=== PATIENT | female | born 1955 | race American Indian/Alaskan Native ===

== ENCOUNTER 2016-10-22 07:35 | Outpatient (CLI) | payer OTHER, MEDICARE ==
[2016-10-22] MEDS ORDERED: LEXISCAN IV ONE ×2 (08:46→08:55)
--- NOTE | 2016-10-22 14:13 | Treadmill Report ---
ORDERING PHYSICIAN: Dipak Bateman MD FINDINGS: There is no scintigraphic evidence of myocardial ischemia. The left ventricle is normal in size and systolic function. The left ventricular ejection fraction is measured at 67%. Normal wall motion and wall thickening is noted on gated imaging. CONCLUSION: 1. This is a normal perfusion scan. 2. Normal left ventricular size and systolic function. JOB# [id number] JEOVANY/TIFFANY
[2016-10-22 14:27] VITALS: BP 127/96
== END 2016-10-22 07:36 | disposition home or self-care (01) ==
LOC: CARD 07:35
PROVIDERS: ATTEND Internal Medicine
DX: I27.9 Pulmonary heart disease, unspecified (principal); R07.9 Chest pain, unspecified
CPT/HCPCS: 78452; 93017; A9502; J2785

== ENCOUNTER 2017-05-04 09:24 | Outpatient (CLI) | payer OTHER, MEDICARE ==
--- NOTE | 2017-05-04 10:18 | Mammography Report ---
Bilateral mammogram: Compared to 04/15/16. CAD study utilized. Findings: Heterogeneous breast parenchyma bilaterally. Benign density right breast. No mass. Normal axilla. Impression: Benign findings. Annual followup recommended. BI-RADS CATEGORY: 2 = Benign ACR BI-RADS MAMMOGRAPHIC CODES: 0 = Needs additional imaging evaluation; 1 = Negative; 2 = Benign; 3 = Probably benign; 4 = Suspicious; 5 = Malignant; 6 = Known biopsy-proven malignancy COMMENT: 1. Dense breast tissue, i.e., adenosis, fibrocystic changes, etc., may obscure an underlying neoplasm. 2. Approximately 10% of cancers are not detected with mammography. 3. A negative mammography report should not delay biopsy if a clinically suspicious mass is present. COMMENT: Patient follow-up letters are generated in [facility].
== END 2017-05-04 09:25 | disposition home or self-care (01) ==
LOC: SPVWC 09:24
PROVIDERS: ATTEND Internal Medicine Gastroenterology
DX: Z12.31 Encounter for screening mammogram for malignant neoplasm of breast (principal)
CPT/HCPCS: 77067; G0202

== ENCOUNTER 2017-11-24 16:07 | Emergency (ER) | payer OTHER, MEDICARE ==
[2017-11-24] MEDS ORDERED: ROBAXIN PO ONE (17:42)
[2017-11-24] MEDS ORDERED: MOTRIN PO ONE (17:42)
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
[2017-11-24 20:41] VITALS: BP 119/71
== END 2017-11-24 20:40 | disposition home or self-care (01) ==
LOC: ED 16:07
DX: M54.5 Low back pain (principal); M54.2 Cervicalgia; G89.29 Other chronic pain; M62.838 Other muscle spasm; Z87.891 Personal history of nicotine dependence; V89.2XXA Person injured in unspecified motor-vehicle accident, traffic, initial encounter; Y93.89 Activity, other specified; Y92.89 Other specified places as the place of occurrence of the external cause; Y99.8 Other external cause status
CPT/HCPCS: 72040; 72100; 99283

== ENCOUNTER 2018-05-16 13:07 | Emergency (ER) | payer OTHER, MEDICARE ==
[2018-05-16 13:18] VITALS: BP 133/101
[2018-05-16] MEDS ORDERED: TORADOL IM ONE (20:03)
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
== END 2018-05-16 21:40 | disposition home or self-care (01) ==
LOC: ED 13:07
DX: G89.29 Other chronic pain (principal); M54.5 Low back pain; F17.200 Nicotine dependence, unspecified, uncomplicated; V89.2XXA Person injured in unspecified motor-vehicle accident, traffic, initial encounter; Y92.410 Unspecified street and highway as the place of occurrence of the external cause; Y99.8 Other external cause status
CPT/HCPCS: 72100; 96372; 99283; J1885

== ENCOUNTER 2019-08-27 08:04 | Outpatient (CLI) | payer OTHER, MEDICARE ==
--- NOTE | 2019-08-27 16:23 | Mammography Report ---
DIGITAL SCREENING MAMMOGRAM WITH CAD, 08/27/2019 INDICATION: Routine screening mammography. TECHNIQUE: Digital bilateral 2D mammography was obtained in the craniocaudal and mediolateral obliq ue projections. This examination was interpreted with the benefit of Computer-Aided Detection analysi s. COMPARISON: 08/24/2018 FINDINGS: Breast Density: The breasts are heterogeneously dense, which may obscure small masses. There is no evidence of dominant mass, suspicious calcifications or architectural distortion in eithe r breast. IMPRESSION: No mammographic evidence of malignancy. Follow up recommendation: Routine yearly BI-RADS Category 1: Negative. A "normal" or negative report should not discourage follow up or biopsy of a clinically significant f inding. A written summary of these findings will be mailed to the patient. The patient will be entered into a mammography reporting system which will generate a reminder letter for the patient's next appointmen t at the appropriate interval. The [employer] recommends yearly mammograms starting at age 40 and continuing as l sathish as a woman is in good health. Breast MRI is recommended for women with an approximate 20-25% or greater lifetime risk of breast cancer, including women with a strong family history of breast or ova raghu cancer or who have been treated for Hodgkin's disease. Signer Name: Remy Holldiay MD Signed: 08/27/2019 4:19 PM Workstation Name: [id number]
== END 2019-08-27 08:05 | disposition home or self-care (01) ==
LOC: SPVWC 08:04
PROVIDERS: ATTEND Hospitalist
DX: Z12.31 Encounter for screening mammogram for malignant neoplasm of breast (principal)
CPT/HCPCS: 77067

== ENCOUNTER 2021-07-10 17:52 | Inpatient (IN) | payer OTHER, MEDICARE ==
[2021-07-10] MEDS ORDERED: HEPARIN 10,000 UNITS/10 ML VIAL ONE (17:56)
[2021-07-10] MEDS ORDERED: CLOPIDOGREL 300 MG TAB ONE (17:56)
[2021-07-10] MEDS ORDERED: VERAPAMIL 5 MG/2 ML INJ ONE (17:58)
[2021-07-10] MEDS ORDERED: HEPARIN/NS 5000 UNIT/500ML 1,000 ML IR ONE (17:58)
[2021-07-10] MEDS ORDERED: fentaNYL 100 MCG/2 ML INJ ONE (17:58)
[2021-07-10] MEDS ORDERED: LIDOCAINE (2%) 20 MG/1 ML VIAL 20 ML MDV INFILTRATI ONE (17:59)
[2021-07-10] MEDS ORDERED: NITROGLYCERIN SYRINGE 3 ML ONE (17:59)
[2021-07-10] MEDS ORDERED: SODIUM CHLORIDE 0.9% 1000 ML 1,000 ML ONE (18:00)
[2021-07-10] MEDS ORDERED: CLOPIDOGREL 300 MG TAB PO ONE (18:02)
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
--- NOTE | 2021-07-10 18:08 | History and Physical Report ---
History of Present Illness Chief complaint: My chest hurts History of present illness: 65 YO Female with HTN, HLD, LDD, COPD, OA, Nicotine Dependence presets to ED for evaluation. Pt reports "my chest hurts". Pt states that she has experienced a sudden onset of pain in her chest that began approximately 2 hours ago. Patient states that pain is 10/10, constant, substernal, localized to the left chest, radiates to her jaw and shoulder, worsened with exertion, relieved with rest. EMS was notified and upon arrival the patient was found to be in distress. Patient underwent EKG which was transmitted to [facility] ED. Patient was found to have ST elevation in inferior leads. A code STEMI was called and the patient was subsequently transported to [facility] for further care and evaluation of the aforementioned symptoms. The patient was seen and evaluated in the emergency department and found to have ST elevation [place] and was immediately transported to cardiac Chief Business Officer for intervention. Cardiology team was notified prior to arrival. Patient admitted to ICU and initiated on ACS protocol. Patient denies fever, chills, palpitation, productive cough, skin rash, recent contact, or known exposure to COVID-19. No prior admission for review. No medication listed at time of admission reconciliation. Advanced care planning conducted in ED. Past History Past Medical History: COPD, hypertension, hyperlipidemia, other (See HPI) Past Surgical History: No surgical history, Other (Reviewed) Social history: , lives with family, smoking Family history: hypertension Medications and Allergies Allergies Allergy/AdvReac Type Severity Reaction Status Date / Time No Known Allergies Allergy Verified 10/22/16 08:54 Home Medications Medication Instructions Recorded Confirmed Last Taken Type Gabapentin 100 mg PO HS 10/12/18 10/12/18 08/12/18 History 100 MG HYDROcodone/APAP 7.5-325 [[place] 1 tab PO DAILY PRN 10/12/18 10/12/18 07/21/18 History 7.5-325 mg TAB] 1 TAB Pantoprazole [Protonix] 40 mg PO QDAY 10/12/18 10/12/18 08/13/18 History 40 MG Active Meds: Active Medications Heparin Sodium (Porcine) (Heparin 1,000 Unit/1 Ml Vial) 4,000 unit IV ONCE ONE Stop: 07/10/21 18:03 Review of Systems Constitutional: no weight loss, no weight gain, no fever, no chills Ears, nose, mouth and throat: no ear pain, no tinnitis, no nose pain, no nasal congestion, no sinus pressure Breasts: no change in shape, no swelling Cardiovascular: chest pain, dyspnea on exertion, decreased exercise tolerance Respiratory: no cough, no excessive sputum, no hemoptysis Gastrointestinal: no abdominal pain, no nausea, no vomiting, no diarrhea, no constipation, no change in bowel habits Genitourinary Female: no pelvic pain, no flank pain, no dysuria, no urinary frequency, no urgency Rectal: no pain, no incontinence, no bleeding Musculoskeletal: no neck stiffness, no neck pain, no shooting arm pain, no arm numbness/tingling Integumentary: no rash, no redness, no sores, no jaundice, no boils Neurological: no transient paralysis, no parathesias, no tingling, no seizures, no syncope Psychiatric: no memory loss, no sleep disturbances, no hypersomnia, no suicidal ideation Endocrine: no cold intolerance, no excessive thirst, no polydipsia, no polyuria, no nocturia Hematologic/Lymphatic: no easy bruising, no easy bleeding, no lymphadenopathy, no lymphedema Allergic/Immunologic: no allergic rhinitis, no wheezing, no anaphylaxis Exam - Constitutional General appearance: Present: mild distress - EENT Eyes: Present: PERRL ENT: hearing intact, clear oral mucosa - Neck Neck: Present: supple, normal ROM - Respiratory Respiratory effort: normal Respiratory: bilateral: CTA - Cardiovascular Heart Sounds: Present: S1 & S2. Absent: rub, click - Extremities Extremities: pulses symmetrical, No edema Peripheral Pulses: within normal limits - Abdominal General gastrointestinal: Present: soft, non-tender, non-distended, normal bowel sounds Female genitourinary: Present: normal - Integumentary Integumentary: Present: clear, warm, dry - Musculoskeletal Musculoskeletal: gait normal, strength equal bilaterally - Psychiatric Psychiatric: appropriate mood/affect, intact judgment & insight - Neurologic Neurologic: CNII-XII intact, moves all extremities Results - Labs CBC & Chem 7: 07/10/21 Unknown 07/10/21 Unknown Assessment and Plan - Patient Problems (1) STEMI (ST elevation myocardial infarction) Current Visit: No Status: Acute Qualifiers: Involved coronary artery: right coronary artery Qualified Code(s): I21.11 - ST elevation (STEMI) myocardial infarction involving right coronary artery Plan to address problem: Cardiology team consulted in ED. Patient initiated on ACS protocol. Serial cardiac enzymes, EKG, telemetry,. Patient taken urgently to Chief Business Officer for c ardiac intervention. Further care and evaluation as per cardiology team. The high probability of a clinically significant, sudden or life threatening deterioration of the [cardiac] system(s) required my full and direct attention, intervention and personal management. The aggregate critical care time was [65] minutes. This time is in addition to time spent performing reported procedures but includes the following: [x] Data Review and interpretation [x] Patient assessment and monitoring of vital signs [x] Documentation [x] Medication orders and management (2) Diastolic CHF Current Visit: No Status: Suspected Qualifiers: Heart failure chronicity: acute Qualified Code(s): I50.31 - Acute diastolic (congestive) heart failure Plan to address problem: Echocardiogram ordered and is pending at time of admission, cardiology team con sulted in ED. (3) HTN (hypertension) Current Visit: No Status: Acute Qualifiers: Hypertension type: primary hypertension Qualified Code(s): I10 - Essential (primary) hypertension Plan to address problem: Monitor blood pressure every shift, continue medical management (4) HLD (hyperlipidemia) Current Visit: No Status: Acute Qualifiers: Hyperlipidemia type: mixed hyperlipidemia Qualified Code(s): E78.2 - Mixed hyperlipidemia Plan to address problem: Lipid panel, low-cholesterol diet, statin therapy. (5) Nicotine dependence Current Visit: No Status: Acute Qualifiers: Nicotine product type: cigarettes Substance use status: in withdrawal Qualified Code(s): F17.213 - Nicotine dependence, cigarettes, with withdrawal Plan to address problem: Smoking cessation counseling, supportive care, behavior change counseling, +15 minutes. (6) DVT prophylaxis Current Visit: No Status: Acute Plan to address problem: SCDs bilateral lower extremities while in bed, anticoagulation as per cardiology team. (7) Advance care planning Current Visit: No Status: Acute Plan to address problem: Disease education conducted, care plan discussed, diagnoses discussed, prognosis discussed, patient is full code, patient knowledges understanding and agreed with care plan, +30 minutes.
[2021-07-10] MEDS ORDERED: oxyCODONE /ACETAMINOPHEN 5-325MG TAB PO PRN (18:12)
[2021-07-10] MEDS ORDERED: ACETAMINOPHEN 325 MG TAB PO PRN (18:12)
[2021-07-10] MEDS ORDERED: HYDROmorphone 1 MG/1 ML INJ IV PRN (18:12)
[2021-07-10] MEDS ORDERED: ALBUTEROL 2.5 MG/3 ML NEBU IH PRN (18:12)
[2021-07-10] MEDS ORDERED: HEPARIN 1,000 UNIT/1 ML VIAL IV ONE (18:15)
[2021-07-10 18:20] LABS: Basophils % (Auto) 0.7 % (0.0-1.8); Hematocrit 36.3 % (30.3-42.9); Hemoglobin 11.9 gm/dl (10.1-14.3); Lymphocytes # (Auto) 1.5 K/mm3 (1.2-5.4); Lymphocytes % (Auto) 22.1 % (13.4-35.0); Mean Corpuscular HGB Conc 33 % (30-34); Mean Corpuscular Volume 97 fl (79-97); Monocytes # (Auto) 0.7 K/mm3 (0.0-0.8); Monocytes % (Auto) 9.9 % (0.0-7.3); Platelet Count 259 K/mm3 (140-440); Red Blood Count 3.75 M/mm3 (3.65-5.03); Red Cell Distribution Width 15.6 % (13.2-15.2)
[2021-07-10] MEDS ORDERED: ASPIRIN 81 MG TAB CHEW PO STA (18:21)
[2021-07-10] MEDS ORDERED: ASPIRIN 81 MG TAB CHEW PO ONE (18:23)
[2021-07-10] MEDS: MIDAZOLAM 2 MG/2 ML INJ ONE ×2 (18:24→19:15)
[2021-07-10] MEDS ORDERED: fentaNYL 100 MCG/2 ML INJ IV ONE ×2 (18:24→19:15)
[2021-07-10 18:30] LABS: Creatine Kinase MB 1.3 ng/mL (0.0-4.0)
[2021-07-10] MEDS: HEPARIN 10,000 UNITS/10 ML VIAL ONE ×2 (18:30→19:31)
[2021-07-10 18:31] LABS: Blood Urea Nitrogen 16 mg/dL (7-17); Calcium 9.1 mg/dL (8.4-10.2); Hemolysis Index 2
[2021-07-10 18:34] LABS: INR 0.89 (0.87-1.13)
[2021-07-10 18:37] LABS: BUN/Creatinine Ratio 23
[2021-07-10] MEDS ORDERED: HEPARIN/NS 5000 UNIT/500ML 500 ML IR ONE (18:51)
[2021-07-10] MEDS ORDERED: NITROGLYCERIN DRIP 50 MG/250 ML BOTTLE ONE (18:56)
[2021-07-10] MEDS ORDERED: TIROFIBAN/NS 12,500 MCG/250 ML BAG IV SCH (19:00)
[2021-07-10] MEDS ORDERED: TIROFIBAN/NS 12,500 MCG/250 ML BAG IV ONE (19:01)
[2021-07-10] MEDS ORDERED: ATROPINE 0.1% (1 MG/10 ML) CARDIAC SYRINGE ONE (19:07)
[2021-07-10 19:25] LABS: Partial Thromboplastin Time < 20.0 Sec. (24.2-36.6)
[2021-07-10] MEDS ORDERED: HYDROcodone/ACETAMINOPHEN 5-325 MG TAB PO PRN (19:28)
[2021-07-10] MEDS ORDERED: NITROGLYCERIN DRIP 50 MG/250 ML BOTTLE IV ONE (19:28)
--- NOTE | 2021-07-10 19:39 | Consultation ---
History of Present Illness Consult date: 07/10/21 Requesting physician: WHITNEY MENDIOLA Consult reason: chest pain History of present illness: Patient is a 65-year-old with no prior cardiac history presented to the hospital complaining of chest pain. Apparently she had a bath and was washing up. She noticed sudden onset of substernal chest pain radiating to her jaw and shoulder. Pain was so intense and associated significant shortness of breath. She immediately called ENT and was noted to have ST elevations. Code STEMI was activated in the field. On arrival to the emergency room patient was noted to have hypertensive emergency. Patient was given heparin and loaded with Plavix by the ER doctor. She was then sent to the Manager Molecular. She underwent left heart cath with PCI of the 100% occlusion of the RCA. Postprocedure patient is doing well and has no chest pain. Patient is being admitted to the ICU for post PCI care. Past History Past Medical History: COPD, hypertension Past Surgical History: No surgical history Social history: smoking Family history: no significant family history Medications and Allergies Allergies Allergy/AdvReac Type Severity Reaction Status Date / Time No Known Allergies Allergy Verified 10/22/16 08:54 Home Medications Medication Instructions Recorded Confirmed Last Taken Type Gabapentin 100 mg PO HS 10/12/18 10/12/18 08/12/18 History 100 MG HYDROcodone/APAP 7.5-325 [[place] 1 tab PO DAILY PRN 10/12/18 10/12/18 07/21/18 History 7.5-325 mg TAB] 1 TAB Pantoprazole [Protonix] 40 mg PO QDAY 10/12/18 10/12/18 08/13/18 History 40 MG Active Meds: Active Medications Acetaminophen (Acetaminophen 325 Mg Tab) 650 mg PO Q6H PRN PRN Reason: Pain MILD(1-3)/Fever >100.5/ORTEZ Hydrocodone Bitart/Acetaminophen (Hydrocodone/Acetaminophen 5-325 Mg Tab) 1 each PO Q6H PRN PRN Reason: Pain, Moderate (4-6) Albuterol (Albuterol 2.5 Mg/3 Ml Nebu) 2.5 mg IH Q3HRT PRN PRN Reason: Shortness Of Breath Aspirin (Aspirin 81 Mg Tab Chew) 81 mg PO QDAY ASHLIE Atorvastatin Calcium (Atorvastatin 40 Mg Tab) 80 mg PO QHS ASHLIE Carvedilol (Carvedilol 6.25 Mg Tab) 12.5 mg PO ONCE ONE Stop: 07/10/21 19:33 Clopidogrel Bisulfate (Clopidogrel 75 Mg Tab) 75 mg PO QDAY ASHLIE Gabapentin (Gabapentin 100 Mg Cap) 100 mg PO HS ASHLIE Hydromorphone HCl (Hydromorphone 1 Mg/1 Ml Inj) 0.5 mg IV Q23H PRN PRN Reason: Pain , Severe (7-10) Nitroglycerin/Dextrose (Tridil Drip 50mg/250ml) 50 mg in 250 mls @ 6 mls/hr IV TITR ONE; Protocol Stop: 07/12/21 13:07 Oxycodone/Acetaminophen (Oxycodone /Acetaminophen 5-325mg Tab) 1 tab PO Q12H PRN PRN Reason: Pain, Moderate (4-6) Pantoprazole Sodium (Pantoprazole 40 Mg Tab) 40 mg PO QDAY ASHLIE Sodium Chloride (Sodium Chloride 0.9% 10 Ml Flush Syringe) 10 ml IV BID ASHLIE Sodium Chloride (Sodium Chloride 0.9% 10 Ml Flush Syringe) 10 ml IV PRN PRN PRN Reason: LINE FLUSH Review of Systems All systems: negative (As mentioned in H&P) Physical Examination Vital Signs Pulse Resp Pulse Ox 51 L 10 L 100 07/10/21 17:57 07/10/21 17:57 07/10/21 17:57 General appearance: no acute distress HEENT: Positive: Normocephaly Neck: Positive: neck supple Cardiac: Positive: Reg Rate and Rhythm Lungs: Positive: clear to auscultation Neuro: Positive: Grossly Intact Abdomen: Positive: Unremarkable Female genitourinary: deferred Skin: Positive: Clear Extremities: Present: normal Results 07/10/21 Unknown 07/10/21 Unknown Cardiac Enzymes 07/10/21 Range/Units Unknown CK-MB (CK-2) 1.3 (0.0-4.0) ng/mL Coagulation 07/10/21 Range/Units Unknown PT 13.1 (12.2-14.9) Sec. INR 0.89 (0.87-1.13) APTT < 20.0 L (24.2-36.6) Sec. CBC 07/10/21 Range/Units Unknown WBC 6.6 (4.5-11.0) K/mm3 RBC 3.75 (3.65-5.03) M/mm3 Hgb 11.9 (10.1-14.3) gm/dl Hct 36.3 (30.3-42.9) % Plt Count 259 (140-440) K/mm3 Lymph # (Auto) 1.5 (1.2-5.4) K/mm3 [place] # (Auto) 0.7 (0.0-0.8) K/mm3 Eos # (Auto) 0.0 (0.0-0.4) K/mm3 Baso # (Auto) 0.0 (0.0-0.1) K/mm3 Comprehensive Metabolic Panel 07/10/21 Range/Units Unknown Sodium 140 (137-145) mmol/L Potassium 3.7 (3.6-5.0) mmol/L Chloride 103.1 (98-107) mmol/L Carbon Dioxide 23 (22-30) mmol/L BUN 16 (7-17) mg/dL Creatinine 0.7 (0.6-1.2) mg/dL Glucose 222 H (65-100) mg/dL Calcium 9.1 (8.4-10.2) mg/dL EKG interpretations - EKG Sinus rhythms and dysrhythmias: sinus rhythm (Acute inferior ST elevation [place] with anterior reciprocal depression.) Assessment and Plan Impression 1. Acute inferior ST elevation [place] 2. 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 Hypertensive urgency 4. Tobacco abuse Plan 1. As patient has been already loaded in the emergency room with Plavix continue Plavix for 1 year. 2. Aspirin for life 3. Continue nitroglycerin titrate to keep the systolic blood pressure around 110 eventually optimize oral medication and wean off nitroglycerin 4. Routine adjuvant pharmacotherapy post primary PCI 5. Tobacco abuse counseling
[2021-07-10] MEDS ORDERED: carvediloL 6.25 MG TAB PO ONE (20:00)
--- NOTE | 2021-07-10 21:34 | Cardiac Catherization Report ---
DATE OF PROCEDURE: 07/10/2021 CORONARY ANGIOGRAM REPORT PROCEDURES PERFORMED: 1. Left heart catheterization. 2. Selective left and right coronary angiography. 3. Left ventriculography. 4. Successful percutaneous intervention of 100% occlusion of the right coronary artery. COO: Ricardo Tracey MD INDICATION: Acute inferior ST elevation [place]. DESCRIPTION OF PROCEDURE: The patient was prepped and draped in the usual sterile fashion after informed consent was obtained. The right radial artery was cleaned and draped. The right radial artery was entered using a Seldinger technique after infiltration of local anesthesia. A 6-Green[place]ic sheath was placed in the right radial artery. Sheath was cleaned and flushed. Standard radial cocktail including heparin, nitroglycerin and verapamil was given. The left coronary artery was engaged using a JL3.5 catheter. Once initial angiogram was completed, we decided to proceed directly with PCI of the right coronary artery as the patient had an inferior ST elevation NE. Intravenous heparin was used to maintain therapeutic ACT. Several different guides were used. 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 We were unable to engage the right coronary artery selectively. After using a JR4 guide an XB 3.5 guide, an AR1 guide, AL1 guide and multipurpose guide, we were finally able to engage the EBU 4 guide in the right coronary artery. A Runthrough wire was used to cross the 100% occlusion of the right coronary artery. A 2.0 balloon was used to dotter the entire right coronary artery. MARGARET 3 flow was immediately established. A 2.75 x 18 Resolute Integrity drug-eluting stent was deployed at the site of stenosis with resumption of MARGARET 3 flow. The patient tolerated the procedure, was completely hemodynamically stable at the end of the procedure. The guide and the wire were removed. Pigtail catheter was used to perform the left ventriculogram. The patient has already been loaded with 600 mg of Plavix. No additional Plavix was given. The patient also during the procedure was started on Aggrastat, but because of the elevated blood pressure, we decided to stop the Aggrastat. Intravenous nitroglycerin was used to try to titrate the systolic blood pressure. FINDINGS: HEMODYNAMICS: 1. AO was 128/81. 2. LV 128/19. 3. LVEDP was 19. 4. Left ventriculogram done in 30-degree NIETO projection showed borderline LV systolic function, EF 50-55% with inferior hypokinesis. CORONARY ANGIOGRAM DETAILS. 1. The left main has mild ostial stenosis. 2. The LAD is a medium to large caliber vessel with 30-40% luminal narrowing of the mid LAD. 3. Circumflex has mild luminal irregularities. 4. The right coronary artery originates anomalously from the left coronary cusp. It is 100% occluded in the mid portion. Post-PCI excellent results were obtained. 5. Culprit vessel mid RCA. 6. Preprocedure stenosis and MARGARET flow 100% stenosis with zero MARGARET flow. 7. Post-procedure stenosis and MARGARET flow was 0% stenosis and MARGARET 3 flow. 8. Stent deployed 2.75 x 18 mm Resolute drug-eluting stent. IMPRESSION: 1. 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 2. Minimal left main, ostial disease and 30-40% LAD mid stenosis. 3. Borderline LV systolic function with inferior hypokinesis. 4. Please note that the patient had significantly anomalous right coronary artery. Several different guides were used. Finally, we were able to cannulate the artery using an EBU 4 guide catheter. This caused significant delay in the door to balloon time. TID: [id number] RECEIPT: [id number] SLAVA PAULSON
[2021-07-10] MEDS: GABAPENTIN 100 MG CAP PO SCH (21:57)
[2021-07-10 22:04] LABS: Creatine Kinase MB 33.4 ng/mL (0.0-4.0)
[2021-07-11 01:17] LABS: Creatine Kinase MB 47.4 ng/mL (0.0-4.0)
[2021-07-11 01:29] LABS: Chol/HDL Ratio 2.44 %
[2021-07-11] MEDS: NICOTINE 14 MG/24 HR PATCH TD SCH ×2 (03:42→23:05)
[2021-07-11 05:01] LABS: Basophils % (Auto) 0.3 % (0.0-1.8); Eosinophils % (Auto) 0.1 % (0.0-4.3); Hematocrit 29.9 % (30.3-42.9); Hemoglobin 9.9 gm/dl (10.1-14.3); Lymphocytes # (Auto) 2.3 K/mm3 (1.2-5.4); Lymphocytes % (Auto) 30.2 % (13.4-35.0); Mean Corpuscular HGB Conc 33 % (30-34); Mean Corpuscular Volume 96 fl (79-97); Monocytes # (Auto) 0.7 K/mm3 (0.0-0.8); Monocytes % (Auto) 9.5 % (0.0-7.3); Platelet Count 222 K/mm3 (140-440); Red Blood Count 3.12 M/mm3 (3.65-5.03); Red Cell Distribution Width 15.7 % (13.2-15.2)
[2021-07-11 05:25] LABS: Blood Urea Nitrogen 15 mg/dL (7-17); Calcium 8.4 mg/dL (8.4-10.2); Hemolysis Index 4
[2021-07-11 05:33] LABS: BUN/Creatinine Ratio 21
--- NOTE | 2021-07-11 05:34 | XRay Report ---
CHEST 1 VIEW 07/11/2021 4:15 AM INDICATION / CLINICAL INFORMATION: post pci. COMPARISON: None available. FINDINGS: SUPPORT DEVICES: None. HEART / MEDIASTINUM: No significant abnormality. LUNGS / PLEURA: No significant pulmonary or pleural abnormality. No pneumothorax. ADDITIONAL FINDINGS: No significant additional findings. IMPRESSION: 1. No acute findings. Signer Name: Sandoval Beckwith MD Signed: 07/11/2021 5:30 AM Workstation Name: [id number]
--- NOTE | 2021-07-11 09:53 | Consultation ---
History of Present Illness - Reason for Consult Consult date: 07/11/21 STEMI, Post Care Requesting physician: MELVA SOLORIO - History of Present Illness 65 y/o female admitted with acute inferior TX. 100% occlusion of RCA. Opened up and patient is hemodynamically stable. No arrhthymias or hypotension over night. Complains of a small headache this am, likely secondary to nitro. Patient states she has HTN, and Hyperlipidemia. No diabetes. She also has severe GERD and follows with Dr. Cory Preston of [facility]. She is scheduled for a colonoscopy on 07/29 and needs GI to know that she has been admitted with STEMI and what should she do about her procedure. Remainder is negative. Past History Past Medical History: COPD, hypertension, hyperlipidemia, other (See HPI) Past Surgical History: No surgical history, Other (Reviewed) Social history: , lives with family, smoking Family history: hypertension Medications and Allergies Allergies Allergy/AdvReac Type Severity Reaction Status Date / Time No Known Allergies Allergy Verified 10/22/16 08:54 Home Medications Medication Instructions Recorded Confirmed Last Taken Type Gabapentin 300 mg PO HS 10/12/18 07/10/21 07/09/21 21:00 History HYDROcodone/APAP 7.5-325 [[place] 1 tab PO Q6HR PRN 10/12/18 07/10/21 07/09/21 21:00 History 7.5-325 mg TAB] Pantoprazole [Protonix] 40 mg PO QDAY 10/12/18 07/10/21 07/10/21 09:00 History AtorvaSTATin [Lipitor] 20 mg PO DAILY 07/11/21 07/11/21 07/09/21 21:00 History Fluticasone [Flonase] 50 mcg INTRANASAL PRN 07/11/21 07/11/21 06/29/21 History amLODIPine 2.5 mg PO DAILY 07/11/21 07/11/21 07/10/21 09:00 History methylPREDNISolone [Methylpred Dp] 4 mg PO 07/11/21 07/10/21 History Active Meds: Active Medications Acetaminophen (Acetaminophen 325 Mg Tab) 650 mg PO Q6H PRN PRN Reason: Pain MILD(1-3)/Fever >100.5/ORTEZ Hydrocodone Bitart/Acetaminophen (Hydrocodone/Acetaminophen 5-325 Mg Tab) 1 each PO Q6H PRN PRN Reason: Pain, Moderate (4-6) Albuterol (Albuterol 2.5 Mg/3 Ml Nebu) 2.5 mg IH Q3HRT PRN PRN Reason: Shortness Of Breath Aspirin (Aspirin 81 Mg Tab Chew) 81 mg PO QDAY [facility] Atorvastatin Calcium (Atorvastatin 40 Mg Tab) 80 mg PO QHS [facility] Last Admin: 07/11/21 00:41 Dose: 80 mg Documented by: Clopidogrel Bisulfate (Clopidogrel 75 Mg Tab) 75 mg PO QDAY [facility] Gabapentin (Gabapentin 100 Mg Cap) 100 mg PO HS [facility] Last Admin: 07/10/21 21:57 Dose: 100 mg Documented by: Hydromorphone HCl (Hydromorphone 1 Mg/1 Ml Inj) 0.5 mg IV Q23H PRN PRN Reason: Pain , Severe (7-10) Nitroglycerin/Dextrose (Tridil Drip 50mg/250ml) 50 mg in 250 mls @ 6 mls/hr IV TITR ONE; Protocol Stop: 07/12/21 13:07 Last Admin: 07/10/21 19:06 Dose: 9 mls Documented by: Tirofiban/Sodium Chloride (Aggrastat Drip (12.5 Mg/250 Ml)) 12,500 mcg in 250 mls @ 9 mls/hr IV DIRECT ASHLIE; Protocol Stop: 07/11/21 13:00 Nicotine (Nicotine 14 Mg/24 Hr Patch) 14 mg TD QDAY@2200 [facility] Last Admin: 07/11/21 03:42 Dose: 14 mg Documented by: Oxycodone/Acetaminophen (Oxycodone /Acetaminophen 5-325mg Tab) 1 tab PO Q12H PRN PRN Reason: Pain, Moderate (4-6) Pantoprazole Sodium (Pantoprazole 40 Mg Tab) 40 mg PO QDAY [facility] Sodium Chloride (Sodium Chloride 0.9% 10 Ml Flush Syringe) 10 ml IV BID [facility] Last Admin: 07/11/21 00:42 Dose: 10 ml Documented by: Sodium Chloride (Sodium Chloride 0.9% 10 Ml Flush Syringe) 10 ml IV PRN PRN PRN Reason: LINE FLUSH Review of Systems All systems: negative Musculoskeletal: other (right hand swollen) Exam - Constitutional Vitals: Temp Pulse Resp BP Pulse Ox 99 F 50 L 19 91/62 98 07/11/21 03:29 07/11/21 06:20 07/11/21 06:11 07/11/21 06:11 07/11/21 06:11 General appearance: Present: no acute distress, well-nourished - EENT Eyes: Present: PERRL, EOM intact ENT: hearing intact, clear oral mucosa - Neck Neck: Present: supple, normal ROM - Respiratory Respiratory effort: normal Respiratory: bilateral: CTA - Cardiovascular Rhythm: regular Heart Sounds: Present: S1 & S2 - Extremities Extremities: no ischemia, pulses intact - Abdominal General gastrointestinal: Present: soft, non-tender, normal bowel sounds Female genitourinary: Present: deferred - Rectal Rectal Exam: deferred Results - Labs CBC & Chem 7: 07/11/21 04:25 07/11/21 04:25 Labs: Abnormal lab results 07/10/21 07/10/21 07/10/21 Range/Units 21:21 Unknown Unknown RBC (3.65-5.03) M/mm3 Hgb (10.1-14.3) gm/dl Hct (30.3-42.9) % RDW 15.6 H (13.2-15.2) % Moffat % (Auto) 9.9 H (0.0-7.3) % APTT < 20.0 L (24.2-36.6) Sec. Chloride (98-107) mmol/L Carbon Dioxide (22-30) mmol/L Glucose (65-100) mg/dL Total Creatine Kinase 373 H (30-135) units/L CK-MB (CK-2) 33.4 H (0.0-4.0) ng/mL CK-MB (CK-2) Rel Index 8.9 H (0-4) Troponin T 2.240 H* D (0.00-0.029) ng/mL HDL Cholesterol 69 H (40-59) mg/dL 07/10/21 07/11/21 07/11/21 Range/Units Unknown 00:45 04:25 RBC 3.12 L (3.65-5.03) M/mm3 Hgb 9.9 L (10.1-14.3) gm/dl Hct 29.9 L D (30.3-42.9) % RDW 15.7 H (13.2-15.2) % M[place]at % (Auto) 9.5 H (0.0-7.3) % APTT (24.2-36.6) Sec. Chloride (98-107) mmol/L Carbon Dioxide (22-30) mmol/L Glucose 222 H (65-100) mg/dL Total Creatine Kinase 482 H (30-135) units/L CK-MB (CK-2) 47.4 H (0.0-4.0) ng/mL CK-MB (CK-2) Rel Index 9.8 H (0-4) Troponin T 4.290 H* D (0.00-0.029) ng/mL HDL Cholesterol (40-59) mg/dL 07/11/21 Range/Units 04:25 RBC (3.65-5.03) M/mm3 Hgb (10.1-14.3) gm/dl Hct (30.3-42.9) % RDW (13.2-15.2) % [place] % (Auto) (0.0-7.3) % APTT (24.2-36.6) Sec. Chloride 107.1 H (98-107) mmol/L Carbon Dioxide 20 L (22-30) mmol/L Glucose (65-100) mg/dL Total Creatine Kinase (30-135) units/L CK-MB (CK-2) (0.0-4.0) ng/mL CK-MB (CK-2) Rel Index (0-4) Troponin T 3.720 H* (0.00-0.029) ng/mL HDL Cholesterol (40-59) mg/dL - Imaging and Cardiology Chest x-ray: image reviewed Assessment and Plan 65 y/o female with acute inferior TX 1. Goal directed therapy 2. Follow up echo results 3. stopped Nitro drip 4. BP and HR control per cardiology 5. Appears hemodynamically stable for transfer out of ICU. Will sign off once out of unit.
[2021-07-11] MEDS: ASPIRIN 81 MG TAB CHEW PO SCH (11:06)
[2021-07-11] MEDS: PANTOPRAZOLE 40 MG TAB PO SCH (11:06)
--- NOTE | 2021-07-11 12:21 | Electrocardiograph Report ---
[facility] Test Date: 2021-07-10 Test Time: 17:52:09 Pat Name: DOE WINCHESTER Department: Room: A255 1 Gender: F Marketing Support Manager: NURSE : 1955 Requested By: ЕЛЕНА BARAJAS Order Number: [id number] Reading MD: Jordon Ray Measurements Intervals [place] Rate: 52 P: 62 RI: 150 QRS: 65 QRSD: 91 T: 96 QT: 459 QTc: 427 Interpretive Statements Sinus bradycardia Atrial premature complex Inferior infarct, acute No previous ECG available for comparison Electronically Signed On 07-11-2021 12:20:38 EDT by Jordon Ray
--- NOTE | 2021-07-11 12:22 | Electrocardiograph Report ---
[facility] Test Date: 2021-07-10 Test Time: 21:06:01 Pat Name: DOE WINCHESTER Department: Room: A255 1 Gender: F Lace Weaver: [id number] : 1955 Requested By: MELVA SOLORIO Order Number: [id number] Reading MD: Jordon Ray Measurements Intervals [place] Rate: 56 P: 74 [place]: 155 QRS: 36 QRSD: 93 T: -21 QT: 466 QTc: 448 Interpretive Statements Sinus bradycardia No previous ECG available for comparison Electronically Signed On 07-11-2021 12:21:53 EDT by Jordon Ray
--- NOTE | 2021-07-11 12:24 | Electrocardiograph Report ---
[facility] Test Date: 2021-07-11 Test Time: 07:48:08 Pat Name: DOE WINCHESTER Department: Room: A255 1 Gender: F Group Program Manager: AGGIE : 1955 Requested By: MELVA SOLORIO Order Number: [id number] Reading MD: Jordon Ray Measurements Intervals [place] Rate: 58 P: 14 OK: 139 QRS: -5 QRSD: 82 T: -40 QT: 443 QTc: 434 Interpretive Statements Sinus rhythm Low voltage, extremity leads Nonspecific T abnormalities, inferior leads No previous ECG available for comparison Electronically Signed On 07-11-2021 12:24:20 EDT by Jordon Ray
--- NOTE | 2021-07-11 13:25 | Progress Note ---
Assessment and Plan Impression 1. Acute inferior ST elevation VA 2. 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 Hypertensive urgency improved. 4. 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 Continue dual antiplatelet therapy 2. Continue PPIs. Patient has a history of remote gastritis and GI bleed. 3. Start patient on beta-blockers and uptitrate. 4. Stable to transfer to telemetry today. Awaiting 2D echo. If stable likely DC home tomorrow 5. Tobacco abuse counseling Subjective Date of service: 07/11/21 Principal diagnosis: Status post inferior VA Interval history: Patient reports he feels much better. Still has occasional mild chest pain but significantly better since admission. Objective Vital Signs Temp Pulse Pulse Resp Resp BP Pulse Ox 07/11/21 08:10 55 L 55 L 21 99 07/11/21 06:20 50 L 07/11/21 06:11 54 L 19 91/62 98 07/11/21 06:01 55 L 16 91/62 97 07/11/21 05:51 59 L 18 90/60 98 07/11/21 05:41 53 L 17 90/60 98 07/11/21 05:31 56 L 16 90/60 98 07/11/21 05:21 56 L 18 90/60 98 07/11/21 05:11 54 L 16 90/60 98 07/11/21 05:07 55 L 97 07/11/21 05:00 52 L 18 90/60 97 07/11/21 04:51 55 L 16 99/66 99 07/11/21 04:40 53 L 16 99/66 99 07/11/21 04:31 58 L 16 99/66 99 07/11/21 04:21 55 L 20 99/66 99 07/11/21 04:11 53 L 18 99/66 99 07/11/21 04:00 58 L 20 99/66 98 07/11/21 03:51 66 15 99/67 100 07/11/21 03:41 61 22 99/67 100 07/11/21 03:31 62 21 99/67 99 07/11/21 03:29 99 F 07/11/21 03:21 65 20 99/67 99 07/11/21 03:11 60 14 99/67 98 07/11/21 03:00 49 L 21 99/67 100 07/11/21 02:55 49 L 20 97 07/11/21 02:51 51 L 17 96/68 99 07/11/21 02:41 51 L 15 96/68 100 07/11/21 02:35 99 F 07/11/21 02:31 51 L 17 96/68 100 07/11/21 02:21 50 L 16 96/68 99 07/11/21 02:11 52 L 19 96/68 99 07/11/21 02:00 50 L 17 96/68 99 07/11/21 01:51 54 L 18 102/71 100 07/11/21 01:41 50 L 19 102/71 99 07/11/21 01:31 50 L 19 99 07/11/21 01:20 49 L 15 102/71 99 07/11/21 01:11 65 20 102/71 100 07/11/21 01:00 98.3 F 56 L 20 102/71 97 07/11/21 00:51 53 L 17 105/67 99 07/11/21 00:45 50 L 49 L 20 97 07/11/21 00:41 55 L 13 105/67 100 07/11/21 00:31 51 L 14 105/74 99 07/11/21 00:21 54 L 15 105/74 100 07/11/21 00:11 51 L 16 105/74 100 07/11/21 00:00 58 L 16 105/74 100 07/10/21 23:51 52 L 16 111/76 100 07/10/21 23:45 50 L 07/10/21 23:41 53 L 16 111/76 100 07/10/21 23:31 53 L 17 111/76 100 07/10/21 23:21 61 17 113/77 100 07/10/21 23:15 49 L 103/70 07/10/21 23:13 56 L 13 103/70 100 07/10/21 23:11 60 20 103/70 100 07/10/21 23:00 49 L 16 103/70 100 07/10/21 22:51 50 L 15 112/75 100 07/10/21 22:41 50 L 16 110/72 100 07/10/21 22:31 58 L 11 L 110/72 98 07/10/21 22:21 59 L 19 107/74 100 07/10/21 22:11 51 L 16 110/74 100 07/10/21 22:00 60 13 110/74 100 07/10/21 21:51 50 L 13 101/71 100 07/10/21 21:50 50 L 20 07/10/21 21:41 49 L 14 100 07/10/21 21:31 50 L 16 100 07/10/21 21:21 57 L 16 100 07/10/21 21:11 53 L 16 100 07/10/21 21:01 55 L 19 100 07/10/21 20:56 65 13 100 07/10/21 20:25 97.9 F 07/10/21 18:22 157/97 07/10/21 18:01 53 L 13 157/105 100 07/10/21 17:57 51 L 10 L 100 - Physical Examination HEENT: Positive: Normocephaly Neck: Positive: neck supple Cardiac: Positive: Reg Rate and Rhythm Lungs: Positive: clear to auscultation Neuro: Positive: Grossly Intact Abdomen: Positive: Unremarkable Skin: Positive: Clear Incision: Cardiac Cath Site (Mild hematoma right radial site. However good pulses and good oxygen saturation.) Extremities: Present: normal - Labs and Meds Cardiac Enzymes 07/10/21 07/10/21 07/11/21 Range/Units 21:21 Unknown 00:45 CK-MB (CK-2) 33.4 H 1.3 47.4 H (0.0-4.0) ng/mL Coagulation 07/10/21 Range/Units Unknown PT 13.1 (12.2-14.9) Sec. INR 0.89 (0.87-1.13) APTT < 20.0 L (24.2-36.6) Sec. Lipids 07/10/21 Range/Units 21:21 Triglycerides 25 (2-149) mg/dL Cholesterol 169 (50-199) mg/dL HDL Cholesterol 69 H (40-59) mg/dL Cholesterol/HDL Ratio 2.44 % CBC 07/10/21 07/11/21 Range/Units Unknown 04:25 WBC 6.6 7.5 (4.5-11.0) K/mm3 RBC 3.75 3.12 L (3.65-5.03) M/mm3 Hgb 11.9 9.9 L (10.1-14.3) gm/dl Hct 36.3 29.9 L D (30.3-42.9) % Plt Count 259 222 (140-440) K/mm3 Lymph # (Auto) 1.5 2.3 (1.2-5.4) K/mm3 [place] # (Auto) 0.7 0.7 (0.0-0.8) K/mm3 Eos # (Auto) 0.0 0.0 (0.0-0.4) K/mm3 Baso # (Auto) 0.0 0.0 (0.0-0.1) K/mm3 Comprehensive Metabolic Panel 07/10/21 07/11/21 Range/Units Unknown 04:25 Sodium 140 140 (137-145) mmol/L Potassium 3.7 3.6 (3.6-5.0) mmol/L Chloride 103.1 107.1 H (98-107) mmol/L Carbon Dioxide 23 20 L (22-30) mmol/L BUN 16 15 (7-17) mg/dL Creatinine 0.7 0.7 (0.6-1.2) mg/dL Glucose 222 H 92 (65-100) mg/dL Calcium 9.1 8.4 (8.4-10.2) mg/dL - EKG Sinus rhythms and dysrhythmias: sinus rhythm (Acute inferior ST elevation VA with anterior reciprocal depression.)
[2021-07-11] MEDS ORDERED: MORPHINE 2 MG/1 ML INJ IV PRN (14:07)
--- NOTE | 2021-07-11 14:19 | Progress Note ---
<ANA LILIA JUÁREZ - Last Filed: 07/11/21 14:16> Assessment and Plan Assessment and plan: This is a 65-year-old female with HTN, HLD, nicotine dependence admitted for STEMI s/p PCI and deployment of MARIA GUADALUPE to right coronary Neuro: NAD -Reorientation as needed -Maintain sleep-wake cycle -Avoid delirium Cardio: STEMI s/p PCI, h/o HLD and HTN -Cardiology consulted, patient recommendation -Left heart catheter showed 100% occlusion of right coronary artery s/p PCI with deployment of MARIA GUADALUPE -S/p nitroglycerin drip -Dual antiplatelet therapy with Plavix and aspirin -Echo pending -As needed nitroglycerin and morphine for chest pain -As needed EKGs for chest pain -Troponin 2.24, 4.29, 3.72 -Lipid panel: Triglyceride 25, cholesterol 169, LDL 97, HDL 69 -Continue home Lipitor -Blood pressure monitor per protocol Resp: Nicotine abuse -Nicotine patch -Smoking cessation counseling -Supplement oxygen as needed -SPO2 monitoring per protocol GI: h/o GERD -Patient states that she has severe GERD and follows with Dr. Preston of [place] [facility] -States that she is scheduled for colonoscopy in July for positive Hemoccult x2 -Cardiac diet -24 net +559 -BR: Senokot : Hypercholremia, metabolic acidosis -Trend BMP -Replete lites as needed Heme: NAD -Trend CBC -Transfuse for hemoglobin less than 7 -SCDs to bilateral lower extremities while in bed Endo: NAD -Monitor blood sugars -Goal blood sugar 1 40-1 80 -Avoid hypoglycemia ID: NAD -Monitor WBC and fever curve -Monitor for signs of infection The high probability of a clinically significant, sudden or life threatening deterioration of the [cardio] system(s) required my full and direct attention, intervention and personal management. The aggregate critical care time was [60] minutes. This time is in addition to time spent performing reported procedures but includes the following: [x] Data Review and interpretation [x] Patient assessment and monitoring of vital signs [x] Documentation [x] Medication orders and management Disposition Plan: transfer to floor Total Time Spent with Patient (Minutes): 60 History Interval history: This is a 65-year-old female with HTN, HLD, LISA, nicotine dependence who presented to emergency department on 07/10 with complaints of chest pain sudden onset, 06/28, constant, substernal, localized to left chest with radiation to her jaw and shoulder worsened with exertion and relieved with rest via EMS. Patient had a ECG via EMS which showed ST elevation in inferior leads. Code STEMI was called prior to arrival. Patient evaluated emergency department found to have ST elevation MA and hypertensive emergency and immediately transported to cardiac cath for intervention. Cardiology team was on fire prior to arrival and patient was admitted to the ICU post cath on ACS protocol. In the emergency department patient was given heparin and loaded with Plavix. 07/11 s/p left heart cath with PCI which revealed her to percent occlusion of RCA and deployment of stent Hospitalist Physical - Constitutional Vitals: Temp Pulse Resp BP Pulse Ox 99 F 55 L 21 91/62 99 07/11/21 03:29 07/11/21 08:10 07/11/21 08:10 07/11/21 06:11 07/11/21 08:10 General appearance: Present: no acute distress, well-nourished - EENT Eyes: Present: PERRL, EOM intact ENT: hearing intact, clear oral mucosa, dentition normal - Neck Neck: Present: supple, normal ROM - Respiratory Respiratory effort: normal Respiratory: bilateral: CTA - Cardiovascular Rhythm: regular Heart Sounds: Present: S1 & S2. Absent: systolic murmur, diastolic murmur - Extremities Extremities: no ischemia, pulses intact, pulses symmetrical, normal temperature, normal color Extremity abnormal: edema - Peripheral Assessment Right Hand Edema Type: Non-pitting Capillary Refill: < 3 seconds Skin Temperature: Warm Peripheral Pulses: within normal limits - Abdominal General gastrointestinal: soft, non-tender, non-distended, normal bowel sounds - Integumentary Integumentary: Present: clear, warm, dry - Psychiatric Psychiatric: cooperative - Neurologic Neurologic: CNII-XII intact, no focal deficits, moves all extremities - Allied Health Allied health notes reviewed: nursing, RT, social work HEART Score - HEART Score EKG: Significant ST-depression Age: 45-65 Risk factors: 1-2 risk factors Troponin: Troponin T 3.720 ng/mL (0.00-0.029) H* 07/11/21 04:25 Troponin: < normal limit Results - Labs CBC & Chem 7: 07/11/21 04:25 07/11/21 04:25 Labs: Laboratory Last Values WBC 7.5 K/mm3 (4.5-11.0) 07/11/21 04:25 RBC 3.12 M/mm3 (3.65-5.03) L 07/11/21 04:25 Hgb 9.9 gm/dl (10.1-14.3) L 07/11/21 04:25 Hct 29.9 % (30.3-42.9) L D 07/11/21 04:25 MCV 96 fl (79-97) 07/11/21 04:25 MCH 32 pg (28-32) 07/11/21 04:25 MCHC 33 % (30-34) 07/11/21 04:25 RDW 15.7 % (13.2-15.2) H 07/11/21 04:25 Plt Count 222 K/mm3 (140-440) 07/11/21 04:25 Lymph % (Auto) 30.2 % (13.4-35.0) 07/11/21 04:25 [place] % (Auto) 9.5 % (0.0-7.3) H 07/11/21 04:25 Eos % (Auto) 0.1 % (0.0-4.3) 07/11/21 04:25 Baso % (Auto) 0.3 % (0.0-1.8) 07/11/21 04:25 Lymph # (Auto) 2.3 K/mm3 (1.2-5.4) 07/11/21 04:25 [place] # (Auto) 0.7 K/mm3 (0.0-0.8) 07/11/21 04:25 Eos # (Auto) 0.0 K/mm3 (0.0-0.4) 07/11/21 04:25 Baso # (Auto) 0.0 K/mm3 (0.0-0.1) 07/11/21 04:25 Seg Neutrophils % 59.9 % (40.0-70.0) 07/11/21 04:25 Seg Neutrophils # 4.5 K/mm3 (1.8-7.7) 07/11/21 04:25 PT 13.1 Sec. (12.2-14.9) 07/10/21 Unknown INR 0.89 (0.87-1.13) 07/10/21 Unknown APTT < 20.0 Sec. (24.2-36.6) L 07/10/21 Unknown Sodium 140 mmol/L (137-145) 07/11/21 04:25 Potassium 3.6 mmol/L (3.6-5.0) 07/11/21 04:25 Chloride 107.1 mmol/L (98-107) H 07/11/21 04:25 Carbon Dioxide 20 mmol/L (22-30) L 07/11/21 04:25 Anion Gap 17 mmol/L 07/11/21 04:25 BUN 15 mg/dL (7-17) 07/11/21 04:25 Creatinine 0.7 mg/dL (0.6-1.2) 07/11/21 04:25 Estimated GFR > 60 ml/min 07/11/21 04:25 BUN/Creatinine Ratio 21 % 07/11/21 04:25 Glucose 92 mg/dL (65-100) 07/11/21 04:25 Calcium 8.4 mg/dL (8.4-10.2) 07/11/21 04:25 Total Creatine Kinase 482 units/L (30-135) H 07/11/21 00:45 CK-MB (CK-2) 47.4 ng/mL (0.0-4.0) H 07/11/21 00:45 CK-MB (CK-2) Rel Index 9.8 (0-4) H 07/11/21 00:45 Troponin T 3.720 ng/mL (0.00-0.029) H* 07/11/21 04:25 Triglycerides 25 mg/dL (2-149) 07/10/21 21:21 Cholesterol 169 mg/dL (50-199) 07/10/21 21:21 LDL Cholesterol Direct 97 mg/dL (50-130) 07/10/21 21:21 HDL Cholesterol 69 mg/dL (40-59) H 07/10/21 21:21 Cholesterol/HDL Ratio 2.44 % 07/10/21 21:21 Blood Type O POSITIVE 07/10/21 18:00 Antibody Screen Negative 07/10/21 18:00 Ware/IV: Voiding Method Bedpan Active Medications - Current Medications Current Medications: Generic Name Dose Route Start Last Admin Trade Name Freq PRN Reason Stop Dose Admin Acetaminophen 650 mg 07/10/21 18:12 Acetaminophen 325 Mg Tab PO Q6H PRN Pain MILD(1-3)/Fever >100.5/ORTEZ Hydrocodone Bitart/Acetaminophen 1 each 07/10/21 19:28 Hydrocodone/Acetaminophen 5-325 Mg Tab PO Q6H PRN Pain, Moderate (4-6) Albuterol 2.5 mg 07/10/21 18:12 Albuterol 2.5 Mg/3 Ml Nebu IH Q3HRT PRN Shortness Of Breath Aspirin 81 mg 07/11/21 10:00 07/11/21 11:06 Aspirin 81 Mg Tab Chew PO 81 mg QDAY ASHLIE Administration Atorvastatin Calcium 80 mg 07/10/21 22:00 07/11/21 00:41 Atorvastatin 40 Mg Tab PO 80 mg QHS ASHLIE Administration Clopidogrel Bisulfate 75 mg 07/11/21 20:00 Clopidogrel 75 Mg Tab PO QDAY ASHLIE Gabapentin 100 mg 07/10/21 22:00 07/10/21 21:57 Gabapentin 100 Mg Cap PO 100 mg HS ASHLIE Administration Hydromorphone HCl 0.5 mg 07/10/21 18:12 Hydromorphone 1 Mg/1 Ml Inj IV Q23H PRN Pain , Severe (7-10) Morphine Sulfate 2 mg 07/11/21 14:07 Morphine 2 Mg/1 Ml Inj IV Q5MIN PRN Chest Pain unrelieved by NTG Nicotine 14 mg 07/11/21 01:45 07/11/21 03:42 Nicotine 14 Mg/24 Hr Patch TD 14 mg QDAY@2200 ASHLIE Administration Oxycodone/Acetaminophen 1 tab 07/10/21 18:12 Oxycodone /Acetaminophen 5-325mg Tab PO Q12H PRN Pain, Moderate (4-6) Pantoprazole Sodium 40 mg 07/11/21 10:00 07/11/21 11:06 Pantoprazole 40 Mg Tab PO 40 mg QDAY ASHLIE Administration Senna 17.2 mg 07/11/21 22:00 Sennosides 8.6 Mg Tab PO QHS ASHLIE Sodium Chloride 10 ml 07/10/21 22:00 07/11/21 11:06 Sodium Chloride 0.9% 10 Ml Flush Syringe IV 10 ml BID ASHLIE Administration Sodium Chloride 10 ml 07/10/21 18:12 Sodium Chloride 0.9% 10 Ml Flush Syringe IV PRN PRN LINE FLUSH <EMMA KYLE - Last Filed: 07/12/21 12:41> Assessment and Plan - Patient Problems (1) Gastritis Current Visit: Yes Status: Acute (2) STEMI (ST elevation myocardial infarction) Current Visit: Yes Status: Acute (3) HLD (hyperlipidemia) Current Visit: No Status: Acute Qualifiers: Hyperlipidemia type: mixed hyperlipidemia Qualified Code(s): E78.2 - Mixed hyperlipidemia (4) HTN (hypertension) Current Visit: No Status: Acute Qualifiers: Hypertension type: primary hypertension Qualified Code(s): I10 - Essential (primary) hypertension (5) Diastolic CHF Current Visit: No Status: Suspected Qualifiers: Heart failure chronicity: acute Qualified Code(s): I50.31 - Acute diastolic (congestive) heart failure History Interval history: I saw and evaluated the patient. Discussed with the nurse practitioner and agree with their findings and plan as documented in this note. Hospitalist Physical - Constitutional Vitals: Temp Pulse Resp BP Pulse Ox 97.0 F L 70 16 105/76 100 07/12/21 11:31 07/12/21 11:31 07/12/21 11:31 07/12/21 11:31 07/12/21 11:31 HEART Score - HEART Score Troponin: Troponin T 3.720 ng/mL (0.00-0.029) H* 07/11/21 04:25 Results - Labs CBC & Chem 7: 07/12/21 04:36 07/12/21 04:36 Labs: Laboratory Last Values WBC 8.4 K/mm3 (4.5-11.0) 07/12/21 04:36 RBC 3.33 M/mm3 (3.65-5.03) L 07/12/21 04:36 Hgb 10.5 gm/dl (10.1-14.3) 07/12/21 04:36 Hct 31.9 % (30.3-42.9) 07/12/21 04:36 MCV 96 fl (79-97) 07/12/21 04:36 MCH 31 pg (28-32) 07/12/21 04:36 MCHC 33 % (30-34) 07/12/21 04:36 RDW 15.8 % (13.2-15.2) H 07/12/21 04:36 Plt Count 206 K/mm3 (140-440) 07/12/21 04:36 Lymph % (Auto) 30.2 % (13.4-35.0) 07/11/21 04:25 [place] % (Auto) 9.5 % (0.0-7.3) H 07/11/21 04:25 Eos % (Auto) 0.1 % (0.0-4.3) 07/11/21 04:25 Baso % (Auto) 0.3 % (0.0-1.8) 07/11/21 04:25 Lymph # (Auto) 2.3 K/mm3 (1.2-5.4) 07/11/21 04:25 [place] # (Auto) 0.7 K/mm3 (0.0-0.8) 07/11/21 04:25 Eos # (Auto) 0.0 K/mm3 (0.0-0.4) 07/11/21 04:25 Baso # (Auto) 0.0 K/mm3 (0.0-0.1) 07/11/21 04:25 Seg Neutrophils % 59.9 % (40.0-70.0) 07/11/21 04:25 Seg Neutrophils # 4.5 K/mm3 (1.8-7.7) 07/11/21 04:25 PT 13.1 Sec. (12.2-14.9) 07/10/21 Unknown INR 0.89 (0.87-1.13) 07/10/21 Unknown APTT < 20.0 Sec. (24.2-36.6) L 07/10/21 Unknown Sodium 138 mmol/L (137-145) 07/12/21 04:36 Potassium 3.7 mmol/L (3.6-5.0) 07/12/21 04:36 Chloride 104.3 mmol/L (98-107) 07/12/21 04:36 Carbon Dioxide 21 mmol/L (22-30) L 07/12/21 04:36 Anion Gap 16 mmol/L 07/12/21 04:36 BUN 10 mg/dL (7-17) 07/12/21 04:36 Creatinine 0.7 mg/dL (0.6-1.2) 07/12/21 04:36 Estimated GFR > 60 ml/min 07/12/21 04:36 BUN/Creatinine Ratio 14 % 07/12/21 04:36 Glucose 92 mg/dL (65-100) 07/12/21 04:36 Calcium 8.8 mg/dL (8.4-10.2) 07/12/21 04:36 Magnesium 1.90 mg/dL (1.7-2.3) 07/11/21 04:25 Total Creatine Kinase 482 units/L (30-135) H 07/11/21 00:45 CK-MB (CK-2) 47.4 ng/mL (0.0-4.0) H 07/11/21 00:45 CK-MB (CK-2) Rel Index 9.8 (0-4) H 07/11/21 00:45 Troponin T 3.720 ng/mL (0.00-0.029) H* 07/11/21 04:25 Triglycerides 25 mg/dL (2-149) 07/10/21 21:21 Cholesterol 169 mg/dL (50-199) 07/10/21 21:21 LDL Cholesterol Direct 97 mg/dL (50-130) 07/10/21 21:21 HDL Cholesterol 69 mg/dL (40-59) H 07/10/21 21:21 Cholesterol/HDL Ratio 2.44 % 07/10/21 21:21 Blood Type O POSITIVE 07/10/21 18:00 Antibody Screen Negative 07/10/21 18:00 Ware/IV: Voiding Method Toilet Active Medications - Current Medications Current Medications: Generic Name Dose Route Start Last Admin Trade Name Freq PRN Reason Stop Dose Admin Acetaminophen 650 mg 07/10/21 18:12 Acetaminophen 325 Mg Tab PO Q6H PRN Pain MILD(1-3)/Fever >100.5/ORTEZ Hydrocodone Bitart/Acetaminophen 1 each 07/10/21 19:28 Hydrocodone/Acetaminophen 5-325 Mg Tab PO Q6H PRN Pain, Moderate (4-6) Albuterol 2.5 mg 07/10/21 18:12 Albuterol 2.5 Mg/3 Ml Nebu IH Q3HRT PRN Shortness Of Breath Aspirin 81 mg 07/11/21 10:00 07/12/21 10:03 Aspirin 81 Mg Tab Chew PO 81 mg QDAY ASHLIE Administration Atorvastatin Calcium 80 mg 07/12/21 22:00 Atorvastatin 40 Mg Tab PO QHS ASHLIE Clopidogrel Bisulfate 75 mg 07/11/21 20:00 07/12/21 10:03 Clopidogrel 75 Mg Tab PO 75 mg QDAY ASHLIE Administration Gabapentin 100 mg 07/10/21 22:00 07/11/21 23:05 Gabapentin 100 Mg Cap PO 100 mg HS ASHLIE Administration Morphine Sulfate 2 mg 07/11/21 14:07 Morphine 2 Mg/1 Ml Inj IV Q5MIN PRN Chest Pain unrelieved by NTG Nicotine 14 mg 07/11/21 01:45 07/11/21 23:05 Nicotine 14 Mg/24 Hr Patch TD 14 mg QDAY@2200 ASHLIE Administration Oxycodone/Acetaminophen 1 tab 07/10/21 18:12 07/12/21 07:47 Oxycodone /Acetaminophen 5-325mg Tab PO 1 tab Q12H PRN Administration Pain, Moderate (4-6) Pantoprazole Sodium 40 mg 07/11/21 10:00 07/12/21 10:03 Pantoprazole 40 Mg Tab PO 40 mg QDAY ASHLIE Administration Senna 17.2 mg 07/11/21 22:00 07/11/21 23:05 Sennosides 8.6 Mg Tab PO 17.2 mg QHS ASHLIE Administration Sodium Chloride 10 ml 07/10/21 22:00 07/12/21 10:03 Sodium Chloride 0.9% 10 Ml Flush Syringe IV 10 ml BID ASHLIE Administration Sodium Chloride 10 ml 07/10/21 18:12 Sodium Chloride 0.9% 10 Ml Flush Syringe IV PRN PRN LINE FLUSH
[2021-07-11] MEDS ORDERED: POTASSIUM CHLORIDE ER 20 MEQ TAB PO ONE (17:26)
[2021-07-11] MEDS: CLOPIDOGREL 75 MG TAB PO SCH (21:00)
[2021-07-11] MEDS ORDERED: SENNOSIDES 8.6 MG TAB PO SCH (22:00)
[2021-07-11] MEDS: GABAPENTIN 100 MG CAP PO SCH (23:05)
[2021-07-12 05:13] LABS: Hematocrit 31.9 % (30.3-42.9); Hemoglobin 10.5 gm/dl (10.1-14.3); Mean Corpuscular HGB Conc 33 % (30-34); Mean Corpuscular Volume 96 fl (79-97); Platelet Count 206 K/mm3 (140-440); Red Blood Count 3.33 M/mm3 (3.65-5.03); Red Cell Distribution Width 15.8 % (13.2-15.2)
[2021-07-12 05:39] LABS: Blood Urea Nitrogen 10 mg/dL (7-17); Calcium 8.8 mg/dL (8.4-10.2); Hemolysis Index 1
[2021-07-12 05:44] LABS: BUN/Creatinine Ratio 14
--- NOTE | 2021-07-12 09:09 | Progress Note ---
Assessment and Plan Impression 1. Acute inferior ST elevation MA 2. 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 Hypertensive urgency improved. 4. 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 Continue dual antiplatelet therapy 2. Continue PPIs. Patient has a history of remote gastritis and GI bleed. 3. Continue beta-blockers 4. Stable to DC home from cardiac standpoint 5. Small hematoma radial cath site improving 6. Tobacco abuse counseling Subjective Date of service: 07/12/21 Principal diagnosis: Status post inferior MA Interval history: Doing very well. No complaints. No further chest pain Objective Vital Signs Temp Pulse Pulse Resp BP BP Pulse Ox 07/12/21 07:12 98 F 81 20 103/79 100 07/12/21 04:03 98.6 F 68 16 110/72 95 07/12/21 00:14 98.9 F 68 16 119/74 98 07/11/21 22:00 99 07/11/21 20:17 98.5 F 59 L 20 121/79 99 07/11/21 17:37 58 L 07/11/21 17:21 97 F L 55 L 16 114/70 100 07/11/21 16:41 61 13 146/89 99 07/11/21 16:31 58 L 20 146/89 97 07/11/21 16:21 64 19 146/89 98 07/11/21 16:11 68 20 146/89 99 07/11/21 16:10 70 70 15 100 07/11/21 16:00 62 24 140/93 100 07/11/21 15:51 71 16 146/89 100 07/11/21 15:41 76 15 146/89 100 07/11/21 15:31 71 12 146/89 98 07/11/21 15:21 55 L 23 146/89 99 07/11/21 15:11 52 L 24 146/89 100 07/11/21 15:00 50 L 21 146/89 100 07/11/21 14:51 51 L 23 142/91 100 07/11/21 14:41 57 L 19 142/91 100 10/23/21 14:31 50 L 23 142/91 100 07/11/21 14:21 50 L 21 142/91 100 07/11/21 14:11 50 L 22 142/91 100 07/11/21 14:00 53 L 23 142/91 100 07/11/21 13:51 56 L 21 135/87 100 07/11/21 13:41 73 24 135/87 100 07/11/21 13:31 67 11 L 135/87 100 07/11/21 13:21 58 L 19 135/87 100 07/11/21 13:11 54 L 27 H 135/87 100 07/11/21 13:01 60 20 135/87 98 07/11/21 12:51 58 L 18 110/79 100 07/11/21 12:41 69 14 110/79 100 07/11/21 12:31 56 L 22 110/79 100 07/11/21 12:21 68 16 110/79 100 07/11/21 12:11 66 66 15 100 07/11/21 12:10 69 14 110/79 100 07/11/21 12:01 68 12 110/79 98 07/11/21 12:00 99.2 F 07/11/21 11:51 55 L 22 116/70 100 07/11/21 11:41 48 L 19 116/70 100 07/11/21 11:31 52 L 18 116/70 100 07/11/21 11:20 52 L 22 111/79 100 07/11/21 11:11 66 13 116/70 100 07/11/21 11:00 84 14 116/70 99 07/11/21 10:51 66 16 111/79 100 07/11/21 10:41 55 L 16 111/79 100 07/11/21 10:31 52 L 21 111/79 100 07/11/21 10:21 65 14 111/79 100 07/11/21 10:11 66 19 111/79 100 07/11/21 10:01 62 12 111/79 100 07/11/21 09:51 64 12 106/73 99 07/11/21 09:41 63 13 106/73 100 07/11/21 09:31 52 L 21 106/73 98 07/11/21 09:21 51 L 19 106/73 98 07/11/21 09:11 55 L 20 106/73 99 - Physical Examination HEENT: Positive: Normocephaly Neck: Positive: neck supple Cardiac: Positive: Reg Rate and Rhythm Lungs: Positive: clear to auscultation Neuro: Positive: Grossly Intact Abdomen: Positive: Unremarkable Skin: Positive: Clear Incision: Cardiac Cath Site (Mild hematoma right radial site. However good pulses and good oxygen saturation.) Extremities: Present: normal - Labs and Meds CBC 07/12/21 Range/Units 04:36 WBC 8.4 (4.5-11.0) K/mm3 RBC 3.33 L (3.65-5.03) M/mm3 Hgb 10.5 (10.1-14.3) gm/dl Hct 31.9 (30.3-42.9) % Plt Count 206 (140-440) K/mm3 Comprehensive Metabolic Panel 07/12/21 Range/Units 04:36 Sodium 138 (137-145) mmol/L Potassium 3.7 (3.6-5.0) mmol/L Chloride 104.3 (98-107) mmol/L Carbon Dioxide 21 L (22-30) mmol/L BUN 10 (7-17) mg/dL Creatinine 0.7 (0.6-1.2) mg/dL Glucose 92 (65-100) mg/dL Calcium 8.8 (8.4-10.2) mg/dL - EKG Sinus rhythms and dysrhythmias: sinus rhythm (Acute inferior ST elevation MA with anterior reciprocal depression.)
[2021-07-12] MEDS: PANTOPRAZOLE 40 MG TAB PO SCH (10:03)
[2021-07-12] MEDS: ASPIRIN 81 MG TAB CHEW PO SCH (10:03)
[2021-07-12] MEDS: CLOPIDOGREL 75 MG TAB PO SCH (10:03)
--- NOTE | 2021-07-12 10:24 | Discharge Summary ---
Providers - Providers Date of Admission: 07/10/21 18:12 Date of discharge: 07/12/21 Attending physician: EMMA KYLE MD 07/10/21 Consult to Cardiac Rehabilitation [CONS] Routine Reason For Exam: Phase 1 Consult to Cardiac Rehabilitation [CONS] Routine Reason For Exam: post pci 07/10/21 18:56 Consult to Physician [CONS] Routine Comment: Consulting Provider: HAVEN MALHOTRA Physician Instructions: Reason For Exam: stemi Primary care physician: [employer] Hospitalization Reason for admission: chest pain Condition: Stable Hospital course: Interval history: This is a 65-year-old female with HTN, HLD, LISA, nicotine dependence who presented to emergency department on 07/10 with complaints of chest pain sudden onset, 06/28, constant, substernal, localized to left chest with radiation to her jaw and shoulder worsened with exertion and relieved with rest via EMS. Patient had a ECG via EMS which showed ST elevation in inferior leads. Code STEMI was called prior to arrival. Patient evaluated emergency department found to have ST elevation MD and hypertensive emergency and immediately transported to cardiac cath for intervention. Cardiology team was on fire prior to arrival and patient was admitted to the ICU post cath on ACS protocol. In the emergency department patient was given heparin and loaded with Plavix. Hospital course 07/11 s/p left heart cath with PCI which revealed her to percent occlusion of RCA and deployment of stent 07/12: Patient is recovering well. Swelling in right arm access point is decreased. Echocardiogram completed demonstrated ejection fraction of 55 to 60%. Patient will be discharged home with prescriptions for aspirin, beta- eric, statin, Plavix. She will also be discharged home with prescription for Protonix as she has a remote history of gastritis/GI bleed. She was advised to follow-up with Dr. Solorio as an outpatient. She was advised to follow-up with her primary care doctor in 1 to 2 weeks. Neuro: NAD -Reorientation as needed -Maintain sleep-wake cycle -Avoid delirium Cardio: STEMI s/p PCI, h/o HLD and HTN -Cardiology consulted, patient recommendation -Left heart catheter showed 100% occlusion of right coronary artery s/p PCI with deployment of MARIA GUADALUPE -S/p nitroglycerin drip -Dual antiplatelet therapy with Plavix and aspirin -Echo pending -As needed nitroglycerin and morphine for chest pain -As needed EKGs for chest pain -Troponin 2.24, 4.29, 3.72 -Lipid panel: Triglyceride 25, cholesterol 169, LDL 97, HDL 69 -Continue home Lipitor -Blood pressure monitor per protocol Resp: Nicotine abuse -Nicotine patch -Smoking cessation counseling -Supplement oxygen as needed -SPO2 monitoring per protocol GI: h/o GERD -Patient states that she has severe GERD and follows with Dr. Preston of [place] [facility] -States that she is scheduled for colonoscopy in July for positive Hemoccult x2 -Cardiac diet -24 net +559 -BR: Senokot : Hypercholremia, metabolic acidosis -Trend BMP -Replete lites as needed Heme: NAD -Trend CBC -Transfuse for hemoglobin less than 7 -SCDs to bilateral lower extremities while in bed Endo: NAD -Monitor blood sugars -Goal blood sugar 1 40-1 80 -Avoid hypoglycemia ID: NAD -Monitor WBC and fever curve -Monitor for signs of infection The high probability of a clinically significant, sudden or life threatening deterioration of the [cardio] system(s) required my full and direct attention, intervention and personal management. The aggregate critical care time was [60] minutes. This time is in addition to time spent performing reported procedures but includes the following: [x] Data Review and interpretation [x] Patient assessment and monitoring of vital signs [x] Documentation [x] Medication orders and management Disposition: 01 HOME / SELF CARE / HOMELESS Final Discharge Diagnosis (Prints w/discharge instructions): STEMI Time spent for discharge: 35 - Discharge Diagnoses (1) Gastritis Status: Acute (2) STEMI (ST elevation myocardial infarction) Status: Acute (3) HLD (hyperlipidemia) Status: Acute Qualifiers: Hyperlipidemia type: mixed hyperlipidemia Qualified Code(s): E78.2 - Mixed hyperlipidemia (4) HTN (hypertension) Status: Acute Qualifiers: Hypertension type: primary hypertension Qualified Code(s): I10 - Essential (primary) hypertension (5) Diastolic CHF Status: Suspected Qualifiers: Heart failure chronicity: acute Qualified Code(s): I50.31 - Acute diastolic (congestive) heart failure Core Measure Documentation - Palliative Care Palliative Care/ Comfort Measures: Not Applicable - Core Measures Any of the following diagnoses?: acute MD - Acute MD Discharge Requirements Aspirin at discharge: Yes PINKY/ARB for LVSD if EF <40%: Not Applicable (EF 55%) Beta eric at discharge: Yes Statin for LDL = or >100 mg/dl on DC: Yes Exam - Physical Exam Narrative exam: General appearance: Present: no acute distress, well-nourished - EENT Eyes: Present: PERRL, EOM intact ENT: hearing intact, clear oral mucosa, dentition normal - Neck Neck: Present: supple, normal ROM - Respiratory Respiratory effort: normal Respiratory: bilateral: CTA - Cardiovascular Rhythm: regular Heart Sounds: Present: S1 & S2. Absent: systolic murmur, diastolic murmur - Extremities Extremities: no ischemia, pulses intact, pulses symmetrical, normal temperature, normal color Extremity abnormal: edema - Peripheral Assessment Right Hand Edema Type: Non-pitting Capillary Refill: < 3 seconds Skin Temperature: Warm Peripheral Pulses: within normal limits - Abdominal General gastrointestinal: soft, non-tender, non-distended, normal bowel sounds - Integumentary Integumentary: Present: clear, warm, dry - Psychiatric Psychiatric: cooperative - Neurologic Neurologic: CNII-XII intact, no focal deficits, moves all extremities - Allied Health Allied health notes reviewed: nursing, RT, social work - Constitutional Vitals: Temp Pulse Resp BP Pulse Ox 98 F 81 20 103/79 100 07/12/21 07:12 07/12/21 07:12 07/12/21 07:12 07/12/21 07:12 07/12/21 07:12 Plan Follow up with: PRIMARY CAREMD [Primary Care Provider] - 3-5 Days MELVA SOLORIO MD [Staff Physician] - 7 Days Forms: CardCath PCI D/C Instructions, Discharge Signature Page Prescriptions: AtorvaSTATin [Lipitor] 40 mg PO QHS 30 Days #30 tab Aspirin [Aspirin BABY CHEW TAB] 81 mg PO QDAY 30 Days #30 tab.chew Metoprolol [Lopressor TAB] 25 mg PO BID 30 Days #60 tablet Clopidogrel [Plavix] 75 mg PO QDAY 30 Days #30 tablet Pantoprazole [Protonix] 40 mg PO QDAY 30 Days #30 tablet
--- NOTE | 2021-07-12 10:27 | Electrocardiograph Report ---
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
[2021-07-12 11:37] VITALS: BP 105/76
--- NOTE | 2021-07-12 11:50 | Progress Note ---
Assessment and Plan 65 y/o female with acute inferior RI No objection to discharge. No pulmonary follow up needed. 1. Goal directed therapy 2. Follow up echo results 3. stopped Nitro drip 4. BP and HR control per cardiology 5. Appears hemodynamically stable for transfer out of ICU. Will sign off once out of unit. Subjective Date of service: 07/12/21 Principal diagnosis: Status post inferior RI Interval history: Being discharged today. Pulm status is stable. Objective - Constitutional Vitals: Vital Signs - 12hr 07/12/21 07/12/21 07/12/21 00:14 04:03 07:12 Temperature 98.9 F 98.6 F 98 F Pulse Rate 68 68 81 Respiratory 16 16 20 Rate Blood Pressure 119/74 110/72 Blood Pressure 103/79 [Left] O2 Sat by Pulse 98 95 100 Oximetry 07/12/21 11:31 Temperature 97.0 F L Pulse Rate 70 Respiratory 16 Rate Blood Pressure 105/76 Blood Pressure [Left] O2 Sat by Pulse 100 Oximetry - Labs CBC & Chem 7: 07/12/21 04:36 07/12/21 04:36 Labs: Abnormal lab results 07/12/21 07/12/21 Range/Units 04:36 04:36 RBC 3.33 L (3.65-5.03) M/mm3 RDW 15.8 H (13.2-15.2) % Carbon Dioxide 21 L (22-30) mmol/L Medications & Allergies - Medications Allergies/Adverse Reactions: Allergies No Known Allergies Allergy (Verified 10/22/16 08:54) Home Medications: Home Medications Medication Instructions Recorded Confirmed Last Taken Type Fluticasone [Flonase] 50 mcg INTRANASAL PRN 07/11/21 07/11/21 06/29/21 History amLODIPine 2.5 mg PO DAILY 07/11/21 07/11/21 07/10/21 09:00 History Aspirin [Aspirin BABY CHEW TAB] 81 mg PO QDAY 30 Days #30 tab.chew 07/12/21 Unknown Rx AtorvaSTATin [Lipitor] 40 mg PO QHS 30 Days #30 tab 07/12/21 Unknown Rx Clopidogrel [Plavix] 75 mg PO QDAY 30 Days #30 tablet 07/12/21 Unknown Rx Metoprolol [Lopressor TAB] 25 mg PO BID 30 Days #60 tablet 07/12/21 Unknown Rx Pantoprazole [Protonix] 40 mg PO QDAY 30 Days #30 tablet 07/12/21 Unknown Rx Active Medications: Generic Name Dose Route Start Last Admin Trade Name Freq PRN Reason Stop Dose Admin Acetaminophen 650 mg 07/10/21 18:12 Acetaminophen 325 Mg Tab PO Q6H PRN Pain MILD(1-3)/Fever >100.5/ORTEZ Hydrocodone Bitart/Acetaminophen 1 each 07/10/21 19:28 Hydrocodone/Acetaminophen 5-325 Mg Tab PO Q6H PRN Pain, Moderate (4-6) Albuterol 2.5 mg 07/10/21 18:12 Albuterol 2.5 Mg/3 Ml Nebu IH Q3HRT PRN Shortness Of Breath Aspirin 81 mg 07/11/21 10:00 07/12/21 10:03 Aspirin 81 Mg Tab Chew PO 81 mg QDAY ASHLIE Administration Atorvastatin Calcium 80 mg 07/12/21 22:00 Atorvastatin 40 Mg Tab PO QHS ASHLIE Clopidogrel Bisulfate 75 mg 07/11/21 20:00 07/12/21 10:03 Clopidogrel 75 Mg Tab PO 75 mg QDAY ASHLIE Administration Gabapentin 100 mg 07/10/21 22:00 07/11/21 23:05 Gabapentin 100 Mg Cap PO 100 mg HS ASHLIE Administration Morphine Sulfate 2 mg 07/11/21 14:07 Morphine 2 Mg/1 Ml Inj IV Q5MIN PRN Chest Pain unrelieved by NTG Nicotine 14 mg 07/11/21 01:45 07/11/21 23:05 Nicotine 14 Mg/24 Hr Patch TD 14 mg QDAY@2200 ASHLIE Administration Oxycodone/Acetaminophen 1 tab 07/10/21 18:12 07/12/21 07:47 Oxycodone /Acetaminophen 5-325mg Tab PO 1 tab Q12H PRN Administration Pain, Moderate (4-6) Pantoprazole Sodium 40 mg 07/11/21 10:00 07/12/21 10:03 Pantoprazole 40 Mg Tab PO 40 mg QDAY ASHLIE Administration Senna 17.2 mg 07/11/21 22:00 07/11/21 23:05 Sennosides 8.6 Mg Tab PO 17.2 mg QHS ASHLIE Administration Sodium Chloride 10 ml 07/10/21 22:00 07/12/21 10:03 Sodium Chloride 0.9% 10 Ml Flush Syringe IV 10 ml BID ASHLIE Administration Sodium Chloride 10 ml 07/10/21 18:12 Sodium Chloride 0.9% 10 Ml Flush Syringe IV PRN PRN LINE FLUSH HEART Score - HEART Score EKG: Significant ST-depression Age: 45-65 Risk factors: 1-2 risk factors Troponin: Troponin T 3.720 ng/mL (0.00-0.029) H* 07/11/21 04:25 Troponin: < normal limit
== END 2021-07-12 12:35 | disposition home or self-care (01) | DRG 246 ==
LOC: ED 17:52 → CC1 18:12 → 4A 07-11 17:03
PROVIDERS: ADMIT Internal Medicine; ATTEND Internal Medicine
PROC: 027034Z Dilation of Coronary Artery, One Artery with Drug-eluting Intraluminal Device, Percutaneous Approach (ICD-10-PCS; principal; 2021-07-10)
PROC: 4A023N7 Measurement of Cardiac Sampling and Pressure, Left Heart, Percutaneous Approach (ICD-10-PCS; 2021-07-10)
PROC: B2111ZZ Fluoroscopy of Multiple Coronary Arteries using Low Osmolar Contrast (ICD-10-PCS; 2021-07-10)
PROC: B2151ZZ Fluoroscopy of Left Heart using Low Osmolar Contrast (ICD-10-PCS; 2021-07-10)
DX: I21.19 ST elevation (STEMI) myocardial infarction involving other coronary artery of inferior wall (principal); I50.31 Acute diastolic (congestive) heart failure; E87.2 Acidosis; F17.213 Nicotine dependence, cigarettes, with withdrawal; I16.0 Hypertensive urgency; K29.70 Gastritis, unspecified, without bleeding; I11.0 Hypertensive heart disease with heart failure; K21.9 Gastro-esophageal reflux disease without esophagitis; M19.90 Unspecified osteoarthritis, unspecified site; J44.9 Chronic obstructive pulmonary disease, unspecified; G89.29 Other chronic pain; M54.9 Dorsalgia, unspecified; Z82.49 Family history of ischemic heart disease and other diseases of the circulatory system; E87.8 Other disorders of electrolyte and fluid balance, not elsewhere classified; E78.2 Mixed hyperlipidemia
CPT/HCPCS: 36415; 71045; 80048; 80061; 82550; 82553; 83735; 84484; 85025; 85027; 85610; 85730; 86850; 86900; 86901; 92941; 93005; 93306; 93458; G0378; C1725; C1769; C1874; C1887; C1894; C9606; J0461; J1170; J1644; J2250; J3010; J3246; J7030; Q9967